=== PATIENT | female | born 1965 | race Caucasian/White ===

== ENCOUNTER 2024-02-29 01:09 | Emergency (ER) | payer BC ==
[~2024-02-29] VITALS: Ht 154.9 cm; Wt 54.4 kg
[2024-02-29] MEDS: ALBUTEROL SULFATE 2.5 MG/3 ML NEBU NEB ONE (01:53)
[2024-02-29] MEDS: methylPREDNISolone SOD SUCC 125 MG/2 ML VIAL IV ONE (01:58)
[2024-02-29 02:00] VITALS: O2SAT 98
[2024-02-29 02:10] VITALS: O2SAT 98; O2SAT 99
[2024-02-29] MEDS ORDERED: PRED50TA PO (06:03)
== END 2024-02-29 02:41 | disposition left against medical advice (07) ==
LOC: ER 01:18
DX: J45.901 Unspecified asthma with (acute) exacerbation (principal); Z88.8 Allergy status to other drugs, medicaments and biological substances
CPT/HCPCS: A4606; A4663